=== PATIENT | female | born 2000 | race Caucasian/White ===

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

== ENCOUNTER 2020-06-25 22:09 | Emergency (ER) | payer SELFPAY ==
[2020-06-25] MEDS ORDERED: traMADol 50 MG Tab PO ONE (23:03)
[2020-06-25] MEDS ORDERED: Ibuprofen 600 MG Tab PO ONE (23:03)
[2020-06-25] MEDS ORDERED: Amoxicillin/Clavulanate K 875-125 MG Tab PO ONE (23:04)
--- NOTE | 2020-06-25 23:14 | EDM.PDOC ---
ED HPI GENERAL MEDICAL PROBLEM - General Chief Complaint: Bite:Animal, Insect Stated Complaint: ATTACKED BY CAT Time Seen by Provider: 06/25/20 22:40 - History of Present Illness INITIAL COMMENTS - FREE TEXT/NARRATIVE: HISTORY AND PHYSICAL: History of present illness: This is a 20-year-old female who presents ER today for evaluation of multiple scratches by a friend's cat. According to the patient the friend's cat's immunizations are all up-to-date including rabies. Patient's cat is still in captivity. Patient reports that the cat did not bite her that she got scratched all over her right hand, right forearm, left hand. Patient reports pain is greatest over her thenar aspect of her right hand. Patient denies any other symptomatology or discomfort. Patient denies any history of hypertension, diabetes, liver, lung, kidney problems. Patient has no known drug allergies. Review of systems: As per history of present illness and below otherwise all systems reviewed and negative. Past medical history: As per history of present illness and as reviewed below otherwise noncontributory. Surgical history: As per history of present illness and as reviewed below otherwise noncontributory. Social history: No reported history of drug or alcohol abuse. Family history: As per history of present illness and as reviewed below otherwise noncontributory. Physical exam: This patient was seen and evaluated during the 2019 SARS-CoV-2 novel coronavirus pandemic period. Community viral transmission is ongoing at time of this encounter and the emergency department is operating under pandemic response procedures. Constitutional: Patient is oriented to person, place, and time. Appears well- developed and well-nourished. No distress. HEENT: Moist mucous membranes Head: Normocephalic and atraumatic Eyes: Right eye exhibits no discharge. Left eye exhibits no discharge. No scleral icterus Neck: Normal range of motion. No tracheal deviation present. Cardiovascular: Normal rate and regular rhythm. Pulmonary: Effort normal, no respiratory distress. Abdominal: No distention Musculoskeletal: Normal range of motion Neurologic: Alert and oriented to person, place and time. Skin: [place], warm and dry. Psychiatric: Normal mood and affect. Behavior is normal. Judgment and thought content normal. Nursing note and vital signs have been reviewed Patient's ER physical exam is significant for multiple superficial abrasions throughout her right forearm and hand as well as her left forearm and hand. No active bleeding. No evidence of cellulitis at this time. Diagnostics: Right hand x-ray: Patient refused x-ray. Therapeutics: Ibuprofen, Ultram, Augmentin Patient's tetanus status is up-to-date. Assessment and plan: This is a 20-year-old female who presents ER today secondary to being attacked by a cat and having multiple abrasions secondary to scratches to her upper extremities. Patient be started on Augmentin 875 mg twice a day and we given a prescription for ibuprofen to assist with pain. Patient's tetanus status is up-to-date. The cat's rabies vaccinations and other vaccinations are up-to-date per the homeowner association manager. Reassessment at the time of disposition demonstrates that the patient is in no acute distress. The patient has remained stable throughout the entire ED visit and is without objective evidence for acute process requiring urgent intervention or hospitalization. The patient is stable for discharge, counseling is provided as documented above, discussed symptomatic treatment and specific conditions for return. I have spoken with the patient/caregiver and discussed todays findings, in addition to providing specific details for the plan of care. Questions are answered and there is agreement with the plan. Definitive disposition and diagnosis as appropriate pending reevaluation and review of above. right thumb Pain Score (Numeric/FACES): 5 - Related Data Allergies Allergy/AdvReac Type Severity Reaction Status Date / Time No Known Allergies Allergy Verified 06/25/20 22:33 Home Meds: Home Meds Amoxicillin/Potassium Clav [Augmentin 875-125 Tablet] 1 each PO Q12HR 10 Days #20 tablet 06/25/20 [Rx] Ibuprofen 600 mg PO Q6HR PRN #30 tablet 06/25/20 [Rx] Past Medical History HEENT History: Reports: None Cardiovascular History: Reports: None Respiratory History: Reports: None Gastrointestinal History: Reports: None Genitourinary History: Reports: None MARKETING RESEARCH COORDINATOR History: Reports: None Musculoskeletal History: Reports: None Neurological History: Reports: None Psychiatric History: Reports: Suicide Attempt, Suicidal Ideation Endocrine/Metabolic History: Reports: None Hematologic History: Reports: None Oncologic (Cancer) History: Reports: None Dermatologic History: Reports: None - Infectious Disease History Infectious Disease History: Reports: Measles - Past Surgical History HEENT Surgical History: Reports: Adenoidectomy, Tonsillectomy Social & Family History - Family History Family Medical History: No Pertinent Family History - Tobacco Use Tobacco Use Status *Q: Never Tobacco User - Caffeine Use Caffeine Use: Reports: Energy Drinks, Tea - Recreational Drug Use Recreational Drug Use: No ED ROS GENERAL - Review of Systems Review Of Systems: See Below ED EXAM, ANIMAL BITE - Physical Exam Exam: See Below Course - Vital Signs Last Recorded V/S: Last Vital Signs Temp 99.7 F 06/26/20 00:00 Pulse 97 06/26/20 00:00 Resp 19 06/25/20 22:34 BP 130/70 06/26/20 00:00 Pulse Ox 96 06/26/20 00:00 - Orders/Labs/Meds Meds: Medications Discontinued Medications Generic Name Dose Route Start Last Admin Trade Name Freq PRN Reason Stop Dose Admin Amoxicillin/Clavulanate Potassium 1 tab 06/25/20 23:04 06/25/20 23:19 Amoxicillin/Clavulanate K 875-125 Mg Tab PO 06/25/20 23:05 1 tab ONETIME ONE Administration Bacitracin 1 gm 06/25/20 23:38 06/25/20 23:42 Bacitracin Oint 28.35 Gm Tube TOP 06/25/20 23:39 1 applic NOW STA Administration Ibuprofen 600 mg 06/25/20 23:03 06/25/20 23:19 Ibuprofen 600 Mg Tab PO 06/25/20 23:04 600 mg ONETIME ONE Administration Tramadol HCl 50 mg 06/25/20 23:03 06/25/20 23:20 Tramadol 50 Mg Tab PO 06/25/20 23:04 50 mg ONETIME ONE Administration Departure - Departure Time of Disposition: 23:50 Disposition: Home, Self-Care 01 Condition: Good Clinical Impression: Abrasion, Cat bite involving extremity Cat scratch of forearm Qualifiers: Encounter type: initial encounter Laterality: right Qualified Code(s): S50.811A - Abrasion of right forearm, initial encounter Cat scratch of hand Qualifiers: Encounter type: initial encounter Laterality: right Qualified Code(s): S60.511A - Abrasion of right hand, initial encounter Cat scratch of left hand Qualifiers: Encounter type: initial encounter Qualified Code(s): S60.512A - Abrasion of left hand, initial encounter Cat scratch of left forearm Qualifiers: Encounter type: initial encounter Qualified Code(s): S50.812A - Abrasion of left forearm, initial encounter - Discharge Information Prescriptions: Amoxicillin/Potassium Clav [Augmentin 875-125 Tablet] 1 each PO Q12HR 10 Days #20 tablet Ibuprofen 600 mg PO Q6HR PRN #30 tablet PRN Reason: Pain Instructions: Animal Bite, Adult, Abrasion, [id number] Referrals: PCP,None [Primary Care Provider] - Forms: ED Department Discharge Additional Instructions: You were seen and evaluated in the ER today secondary to scratches from a cat over your upper extremities. You will be started on an antibiotic called Augmentin 875 mg to take twice a day for 10 days. Please make an appointment to see your family doctor in 2 days for wound check. We will also write a prescription for ibuprofen to assist with pain and discomfort. The following information is given to patients seen in the emergency department who are being discharged to home. This information is to outline your options for follow-up care. We provide all patients seen in our emergency department with a follow-up referral. The need for follow-up, as well as the timing and circumstances, are variable depending upon the specifics of your emergency department visit. If you don't have a primary care physician on staff, we will provide you with a referral. We always advise you to contact your personal physician following an emergency department visit to inform them of the circumstance of the visit and for follow-up with them and/or the need for any referrals to a consulting specialist. The emergency department will also refer you to a specialist when appropriate. This referral assures that you have the opportunity for follow-up care with a specialist. All of these measure are taken in an effort to provide you with optimal care, which includes your follow-up. Under all circumstances we always encourage you to contact your private physician who remains a resource for coordinating your care. When calling for follow-up care, please make the office aware that this follow-up is from your recent emergency room visit. If for any reason you are refused follow-up, please contact the [facility] Emergency Department at and asked to speak to the emergency department charge nurse. [facility] - Primary [facility] [address] [place] [id number] [place] [address] Sepsis Event Note (ED) - Evaluation Sepsis Screening Result: No Definite Risk
[2020-06-25] MEDS ORDERED: Bacitracin Oint 28.35 GM Tube TOP STA (23:38)
[2020-06-26 01:06] VITALS: BP 130/70; PULSE 97
== END 2020-06-26 | disposition home or self-care (01) ==
LOC: MW.ED 22:09
DX: S50.811A Abrasion of right forearm, initial encounter (principal); S60.512A Abrasion of left hand, initial encounter; S60.511A Abrasion of right hand, initial encounter; S50.812A Abrasion of left forearm, initial encounter; W55.03XA Scratched by cat, initial encounter; Y92.009 Unspecified place in unspecified non-institutional (private) residence as the place of occurrence of the external cause
CPT/HCPCS: 99283; A9270

== ENCOUNTER 2021-08-31 14:49 | Emergency (ER) | payer SELFPAY ==
[2021-08-31 18:00] VITALS: BP 104/66; PULSE 61
== END 2021-08-31 17:57 | disposition home or self-care (01) ==
LOC: MW.ED 14:49
DX: O20.9 Hemorrhage in early pregnancy, unspecified (principal); Z3A.01 Less than 8 weeks gestation of pregnancy
CPT/HCPCS: 36415; 76801; 76801-26; 81001; 81025; 84702; 85025; 86900; 86901; 99283; 99284-25

== ENCOUNTER 2021-09-01 05:57 | Emergency (ER) | payer SELFPAY ==
[2021-09-01] MEDS ORDERED: Sodium Chloride 0.9% 10 ML Syringe FLUSH PRN (06:14)
[2021-09-01] MEDS ORDERED: Sodium Chloride 0.9% 2.5 ML Syringe FLUSH PRN (06:14)
[2021-09-01] MEDS ORDERED: Sodium Chloride 0.9% 1,000 ML IV ONE (07:09)
[2021-09-01 07:22] LABS: BLOOD UREA NITROGEN,BUN 12 mg/dL (7.0-18.0); CHLORIDE,CL 101 mmol/L (98-107); GLUCOSE RANDOM 98 mg/dL (74-106); SODIUM,NA 137 mmol/L (136-145)
[2021-09-01 10:24] VITALS: BP 94/60; PULSE 91
== END 2021-09-01 10:24 | disposition home or self-care (01) ==
LOC: MW.ED 05:57
DX: O03.9 Complete or unspecified spontaneous abortion without complication (principal)
CPT/HCPCS: 36415; 76801; 76801-26; 80053; 81001; 84702; 85025; 86900; 86901; 99283; 99284-25

== ENCOUNTER 2021-11-30 17:01 | Emergency (ER) | payer MEDICAID ==
[2021-11-30] MEDS ORDERED: Sodium Chloride 0.9% 2.5 ML Syringe FLUSH PRN (17:41)
[2021-11-30] MEDS ORDERED: Sodium Chloride 0.9% 10 ML Syringe FLUSH PRN (17:41)
[2021-11-30] MEDS ORDERED: Sodium Chloride 0.9% 1,000 ML IV ONE (17:44)
[2021-11-30] MEDS ORDERED: Ondansetron 4 MG/2 ML SDV IVPUSH ONE (17:44)
[2021-11-30 18:40] LABS: CARBON DIOXIDE,CO2 31.6 mmol/L (21.0-32.0)
[2021-11-30 20:14] VITALS: BP 112/76; PULSE 80
== END 2021-11-30 20:18 | disposition home or self-care (01) ==
LOC: MW.ED 17:01
DX: S00.83XA Contusion of other part of head, initial encounter (principal); R55 Syncope and collapse; W22.8XXA Striking against or struck by other objects, initial encounter
CPT/HCPCS: 36415; 70450; 70486; 80053; 81001; 83735; 84703; 85025; 93005; 96361; 96374; 99284; J2405; J3490; J7030; 93010

== ENCOUNTER 2022-03-05 23:05 | Emergency (ER) | payer MEDICAID ==
[2022-03-06 00:52] LABS: CARBON DIOXIDE,CO2 27.5 mmol/L (21.0-32.0); POTASSIUM,K 3.7 mmol/L (3.5-5.1)
[2022-03-06 02:12] VITALS: BP 119/82; PULSE 78
[2022-03-06 03:04] LABS: C. TRACHOMATIS BY PCR NOT DETECTED; N. GONORRHOEAE BY PCR NOT DETECTED
== END 2022-03-06 02:11 | disposition home or self-care (01) ==
LOC: MW.ED 23:05
DX: O20.9 Hemorrhage in early pregnancy, unspecified (principal); O23.591 Infection of other part of genital tract in pregnancy, first trimester; B96.89 Other specified bacterial agents as the cause of diseases classified elsewhere; Z3A.01 Less than 8 weeks gestation of pregnancy
CPT/HCPCS: 36415; 76801; 76801-26; 80053; 81003; 84702; 85025; 86900; 86901; 87480; 87491; 87510; 87591; 87660; 99284

== ENCOUNTER 2022-03-07 21:48 | Emergency (ER) | payer MEDICAID ==
[2022-03-07 22:16] VITALS: PULSE 82
[2022-03-07 22:49] LABS: CARBON DIOXIDE,CO2 30.2 mmol/L (21.0-32.0); POTASSIUM,K 3.7 mmol/L (3.5-5.1)
[2022-03-07 23:48] VITALS: BP 127/82
== END 2022-03-07 23:48 | disposition home or self-care (01) ==
LOC: MW.ED 21:48
DX: O03.9 Complete or unspecified spontaneous abortion without complication (principal); Z3A.01 Less than 8 weeks gestation of pregnancy
CPT/HCPCS: 36415; 80053; 84702; 85025; 99283

== ENCOUNTER 2023-04-01 03:07 | Emergency (ER) | payer MEDICAID ==
[2023-04-01 04:14] VITALS: BP 125/73; PULSE 92
[2023-04-01 04:24] LABS: CORONAVIRUS COVID-19 NAA NEGATIVE (NEGATIVE); INFLUENZA A NAA NEGATIVE (NEGATIVE); INFLUENZA B NAA NEGATIVE (NEGATIVE); RESPIRATORY SYNCYTIAL VIR NAA NEGATIVE (NEGATIVE)
== END 2023-04-01 04:14 | disposition home or self-care (01) ==
LOC: MW.ED 03:07
DX: R05.9 Cough, unspecified (principal); Z20.822 Contact with and (suspected) exposure to COVID-19
CPT/HCPCS: 0241U; 99282; 99283

== ENCOUNTER 2023-12-03 17:28 | Inpatient (IN) | payer MEDICAID ==
[2023-12-03] MEDS ORDERED: Carboprost Tromethamine 250 MCG/1 mL Vial IM PRN (19:04)
[2023-12-03] MEDS ORDERED: Misoprostol 25 MCG (1/4 of 100 MCG) Tab VAG PRN (19:04)
[2023-12-03] MEDS ORDERED: Sodium Chloride 0.9% 20 ML SDV IV PRN (19:04)
[2023-12-03] MEDS ORDERED: Tranexamic Acid IN NACL,ISO-OS 1,000 MG in Premix Bag 1 BAG IV PRN (19:04)
[2023-12-03] MEDS ORDERED: Terbutaline 1 MG/ML SDV SUBCUT PRN (19:04)
[2023-12-03] MEDS ORDERED: Sodium Chloride 0.9% 10 ML Syringe FLUSH PRN (19:04)
[2023-12-03] MEDS ORDERED: Sodium Chloride 0.9% 2.5 ML Syringe FLUSH PRN (19:04)
[2023-12-03] MEDS ORDERED: Methylergonovine 0.2 MG/1 ML Amp IM PRN (19:04)
[2023-12-03] MEDS ORDERED: Lidocaine 1% 50 ML MDV INJECT PRN (19:04)
[2023-12-03] MEDS ORDERED: Misoprostol 200 MCG Tab PO PRN (19:04)
[2023-12-03] MEDS ORDERED: Oxytocin/0.9 % Sodium Chloride 30 UNIT/500 ML BAG IV SCH (19:10)
[2023-12-03 19:31] LABS: HEMATOCRIT 32.1 % (37.0-47.0); HEMOGLOBIN 10.2 g/dL (12.0-16.0); MEAN CORPUSCULAR HEMOGLOBIN 24.5 pg (28.0-32.0); MEAN CORPUSCULAR HGB CONC 31.8 g/dL (32.0-36.0); MEAN PLATELET VOLUME 12.4 fL (9.4-12.3); PLATELET COUNT,PLT 331 K/uL (150-400); RED BLOOD CELL COUNT 4.17 M/uL (4.10-5.30); WHITE BLOOD CELL COUNT,WBC 12.61 K/uL (3.9-11.3)
[2023-12-03] MEDS: Misoprostol 25 MCG (1/4 of 100 MCG) Tab VAG PRN (19:42)
[2023-12-03] MEDS: Butorphanol 2 MG/ML SDV IVPUSH PRN (19:51)
[2023-12-03] MEDS ORDERED: ePHEDrine 50 MG/ML SDV IVPUSH PRN (22:21)
[2023-12-03] MEDS ORDERED: Phenylephrine HCl In 0.9% NaCl 1 MG/10 ML Syringe IVPUSH PRN (22:21)
[2023-12-03] MEDS ORDERED: dexmedeTOMIDine HCl 200 MCG/2 ML SDV EPIDUR SCH (22:30)
[2023-12-04] MEDS: Lactated Ringers 1,000 ML IV SCH (00:10)
[2023-12-04] MEDS: Oxytocin/0.9 % Sodium Chloride 30 UNIT/500 ML BAG IV SCH (05:44)
[2023-12-04] MEDS: Ropivacaine HCl/PF 400 MG in Premix Bag 1 BAG EPIDUR SCH (10:09)
[2023-12-04] MEDS: Water For Irrigation,Sterile 1,000 ML Container IRR PRN (15:27)
[2023-12-04] MEDS ORDERED: Lanolin 100% Cream 7 GM Tube TOP PRN (15:30)
[2023-12-04] MEDS ORDERED: oxyCODONE 5 MG Tab PO PRN (15:30)
[2023-12-04] MEDS: Witch Hazel Medicated Pads 40/Jar TOP PRN (17:26)
[2023-12-04] MEDS: Benzocaine/Menthol 20%-0.5% Spray 78 GM Cannister TOP PRN (17:26)
[2023-12-04] MEDS: Ibuprofen 800 MG Tab PO PRN (19:12)
[2023-12-04] MEDS: Docusate Sodium 100 MG Cap PO PRN (19:12)
[2023-12-04] MEDS: Acetaminophen 500 MG Tab PO PRN (19:13)
[2023-12-05 06:45] LABS: HEMATOCRIT 31.4 % (37.0-47.0); HEMOGLOBIN 9.8 g/dL (12.0-16.0)
[2023-12-06 14:42] VITALS: BP 105/68; PULSE 70
== END 2023-12-06 13:40 | disposition home or self-care (01) | DRG 807 ==
LOC: MW.OBCHECK 17:28 → MW.OB 17:28 → OBSVTOIN 12-04 03:12 → MW.OBCHECK 12-04 03:12 → MW.OB 12-04 17:53
PROVIDERS: ADMIT Obstetrics & Gynecology; ATTEND Obstetrics & Gynecology
PROC: 10E0XZZ Delivery of Products of Conception, External Approach (ICD-10-PCS; principal; 2023-12-04)
PROC: 0KQM0ZZ Repair Perineum Muscle, Open Approach (ICD-10-PCS; 2023-12-04)
DX: O36.8130 Decreased fetal movements, third trimester, not applicable or unspecified (principal); Z37.0 Single live birth; Z3A.38 38 weeks gestation of pregnancy; O76 Abnormality in fetal heart rate and rhythm complicating labor and delivery; O70.1 Second degree perineal laceration during delivery; O99.344 Other mental disorders complicating childbirth; F41.9 Anxiety disorder, unspecified; F32.A Depression, unspecified
CPT/HCPCS: 01967; 36415; 51702; 59025; 59200; 59409; 85014; 85018; 85027; 86592; 86850; 86900; 86901; A9270-GY; J0595; J2590; J2795; J3490; J7120